=== PATIENT | male | born 1980 | race Asian ===

== ENCOUNTER 2018-07-23 12:08 | Emergency (ER) | payer SELFPAY ==
[~2018-07-23] VITALS: Ht 185.4 cm; Wt 104.3 kg
[2018-07-23 12:30] VITALS: BP 155/107
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
[2018-07-23] MEDS ORDERED: Ketorolac 30mg Inj IM ONE (13:00)
[2018-07-23] MEDS ORDERED: LIDOCAINE700 M1 TP (13:03)
[2018-07-23] MEDS ORDERED: ROBAXIN500 MG PO (13:03)
[2018-07-23] MEDS ORDERED: IBUPROFEN600 MG ORAL (13:03)
[2018-07-23 13:30] VITALS: BP 139/102
--- NOTE | 2018-07-23 13:30 | NUR ---
ER DISCHARGE NOTE: Patient is cleared to be discharged per ERMD, pt is aox4, accompanied by friends, on room air, with stable vital signs. pt was given dc and prescription instructions, pt was able to verbalize understanding, pt id band removed. pt is able to ambulate with steady gait. pt took all belongings.
== END 2018-07-23 13:30 | disposition home or self-care (01) ==
LOC: EMR 13:20
DX: M54.9 Dorsalgia, unspecified (principal); M25.562 Pain in left knee; V43.62XA Car passenger injured in collision with other type car in traffic accident, initial encounter; Y92.410 Unspecified street and highway as the place of occurrence of the external cause
CPT/HCPCS: 96372; 99283; J1885